=== PATIENT | female | born 1945 | race Caucasian/White ===

== ENCOUNTER → 2023-11-12 15:33 | Outpatient (REF) | payer OTHER, SELFPAY | LOC: HWWDC 15:33 | PROVIDERS: ATTENDING PHYSICIAN Family Medicine | DX: Z12.31 Encounter for screening mammogram for malignant neoplasm of breast (principal) | CPT/HCPCS: 77063; 77067 ==

== ENCOUNTER 2025-02-09 09:36 | Emergency (ER) | payer OTHER, SELFPAY ==
[2025-02-09 09:54] VITALS: BP 156/94
[2025-02-09 10:22] LABS: % Basophils 0.4 % (0-2); % Eosinophils 4.3 % (0-6); % Immature Granulocytes 0.2 % (0-0.5); % Lymphocytes 10.7 % (20.5-51.1); % Monocytes 6.8 % (1.7-9.3); % Neutrophils 77.6 % (42.2-75.2); Absolute Eosinophils 0.5 10^3/uL (0-0.7); Absolute Lymphocytes 1.1 10^3/uL (1.2-3.4); Absolute Monocytes 0.7 10^3/uL (0.1-0.6); Absolute Neutrophils 8.2 10^3/uL (1.4-6.5); Hematocrit 41.6 % (37.0-47.0); Hemoglobin 14.2 g/dL (12.0-16.0); Mean Corp Hgb Conc. 34.1 g/dL (33.0-37.0); Mean Corpuscular Hgb 32.4 pg (27.0-31.0); Mean Platelet Volume 10.5 fL (7.4-10.4); Nucleated Red Blood Cells % 0 %; Platelet Count 247 10^3/uL (130-400); Red Blood Cell Count 4.38 10^6/uL (4.20-5.40); Red Cell Dist. Width 11.9 % (11.5-14.5); White Blood Cell Count 10.5 10^3/uL (4.8-10.8)
[2025-02-09 10:35] LABS: COVID-19 Antigen Negative (Negative)
[2025-02-09 10:36] LABS: ALT (SGPT) 18 U/L (0-35); AST (SGOT) 21 U/L (14-36); Albumin 4.5 g/dl (3.5-5.0); Alkaline Phosphatase 92 U/L (38-126); Blood Urea Nitrogen 12 mg/dl (7-17); Calcium 9.7 mg/dl (8.4-10.2); Carbon Dioxide 27 mmol/L (22-30); Chloride 104 mmol/L (98-107); Glucose 129 mg/dl (70-99); Potassium 3.9 mmol/L (3.5-5.1); Sodium 142 mmol/L (135-145); Total Bilirubin 0.9 mg/dl (0.2-1.3); Total Protein 7.2 g/dl (6.3-8.2); eGFR > 60.00
[2025-02-09 10:45] LABS: Troponin I < 0.012 ng/ml
[2025-02-09] MEDS: DUONEB 3 ML INH (11:16)
--- NOTE | 2025-02-09 11:19 | ED.GENMED ---
History of Present Illness
General
Chief Complaint: Cough
Source: patient
Exam Limitations: none
Time Seen by Provider: 02/09/25 11:05
History of Present Illness
History of Present Illness:
79-year-old female presents with 3 to 4 weeks of cough. She notes continuous and postnasal drip. She has seen her family doctor for this. He prescribed an inhaler Flonase and Mucinex. She now notes that she is wheezing and she feels tight when
she is breathing. She says she has been diagnosed with COPD in the past. No fevers. No leg swelling or calf pain. No other complaints at this time
Past History
Past History
ED Past Medical History: GERD (Hiatal hernia who), HTN, Hypercholesterolemia and Other (History of hiatal hernia, irritated esophagus, frequent UTIs, loss of urination control, osteoarthritis, hearing impairment in the left, anxiety, borderline
diabetes, history of herniated disc); Negative NIDDM
ED Past Surgical History: and Other; Negative Cardiac
Social History
Tobacco: Former smoker (Quit 1998)
Alcohol: None
Personal:
Living: with family
Employment: Retired
Family History
Family History: Hypertension
Phy Exam
Physical Exam
Physical Exam:
General: Well-appearing female no acute respiratory distress
HEENT: Normocephalic atraumatic neck is supple
Heart: Regular rate and rhythm
Lungs: Clear mild wheeze inspiratory
Extremities: No cyanosis or edema
Skin: Warm no rash
Course
Orders/Labs/Results
Orders:
Orders
02/09/25 09:37
Electrocardiogram (*1) Urgent
Reason for Study: Shortness of Breath
EKG- Treatment ONCE
02/09/25 10:04
COVID-19 Antigen Urgent
Source: Nasal Swab
Complete Blood Count/With Diff Urgent
Comprehensive Metabolic Panel Urgent
Influenza A+B Rapid Molecular Urgent
CE Source: Nasal Swab
Specimen Description:
02/09/25 10:05
CXR2 [CR Chest - 2 Views ] Urgent
Comment:
Reason For Exam: cough
02/09/25 10:09
Troponin I Urgent
02/09/25 11:15
Ipratropium/Albuterol Sulfate [Duoneb] 3 ml INH R NOW STA
Abnormal Lab Results
02/09/25
10:04
MCH 32.4 H pg
(27.0-31.0)
MPV 10.5 H fL
(7.4-10.4)
Absolute Neuts (auto) 8.2 H 10^3/uL
(1.4-6.5)
Absolute Lymphs (auto) 1.1 L 10^3/uL
(1.2-3.4)
Absolute Monos (auto) 0.7 H 10^3/uL
(0.1-0.6)
Neutrophils % 77.6 H %
(42.2-75.2)
Lymphocytes % 10.7 L %
(20.5-51.1)
Glucose 129 H mg/dl
(70-99)
02/09/25 10:04
02/09/25 10:04
Vital Signs
Initial and Last Documented VS:
Initial Vital Signs
Temp Pulse Resp BP Pulse Ox
98.7 F 94 16 156/94 94
02/09/25 09:54 02/09/25 09:54 02/09/25 09:54 02/09/25 09:54 02/09/25 09:54
Last Documented Vital Signs
Temp Pulse Resp BP Pulse Ox
98.7 F 80 16 119/84 95
02/09/25 09:54 02/09/25 12:03 02/09/25 12:03 02/09/25 12:03 02/09/25 12:03
MDM/Problems Addressed
Differential Diagnosis Includes:
Cough. Wheeze on exam. Consider asthma versus COPD versus pneumonia versus viral illness COVID and flu test are negative.
Chest x-ray personally reviewed pending radiology report shows no obvious acute infiltrate or consolidation
Will try DuoNeb
*Critical Care Note
Total Time (30-74mins, 75-104mins- exclusive of procedures): Not Applicable
Update Note
Update Note:
Patient feels better after nebulizer. Suspect acute bronchitis. Will represcribe inhaler with several days of steroid. Stable for discharge
ED Attending Note
-
Portions of this chart may have been created with voice recognition software.� Occasional wrong word or��sound alike� substitutions may have occurred due to the inherent limitations of voice recognition software.
Discharge Plan
Departure
Patient Disposition: Home (Routine Discharge)
Date of Disposition: 02/09/25
Time of Disposition: 12:08
Patient with high blood pressure during this ER visit?: No
Discharge Problem:
Acute bronchitis
Instructions: Acute Bronchitis, Adult (DC)
Prescriptions:
New
prednisone 20 mg tablet
40 mg PO DAILY 5 Days Qty: 10 0RF
albuterol sulfate 90 mcg/actuation aerosol powdr breath activated
2 inh inhalation QID PRN (Reason: shortness of breath) Qty: 1 0RF
No Action
quinapril [Accupril] 40 MG tablet
20 mg PO BID
esomeprazole magnesium [Nexium] 40 MG capsule,delayed release(DR/EC)
40 mg PO DAILY
calcium carbonate [Antacid (calcium carbonate)] 1 TABLET tablet,chewable
2 tab PO DAILY
hydrochlorothiazide 25 MG tablet
25 mg PO DAILY
[id number]-lwfyspajieksr-ygsfmsrx [Excedrin Extra Strength] 1 TABLET tablet
1 tab PO 3XW
timolol maleate [Istalol] 2.5 ML drops, once daily
2.5 ml OP DAILY
bimatoprost [Lumigan] 5 ML drops
5 ml OP HS
azithromycin 250 MG tablet
250 mg PO DAILY Qty: 6 0RF
benzonatate 100 MG capsule
100 mg PO TIDPRN PRN (Reason: cough) Qty: 21 0RF
albuterol sulfate [Proventil HFA] 90 MCG/PUFF HFA aerosol inhaler
2 puff inhalation Q4HPRN PRN (Reason: shortness of breath) Qty: 1 0RF
Rx Instructions:
2 puffs every four hours as needed for wheezing/sob.
prednisone 50 MG tablet
50 mg PO DAILY Qty: 5 0RF
tramadol 50 MG tablet
50 mg PO Q8HPRN PRN (Reason: severe pain) Qty: 20 0RF
Referrals:
Carey Hernandez, DO [Family Provider] -
Activity Restrictions/Additional Instructions:
Take the steroid as directed. Use inhaler as needed. Return if worse otherwise follow-up with your doctor
Interventions
Interventions:
*Risk Screen - Suicide Last Done: 02/09/25 11:29
*Nursing Disposition Last Done: 02/09/25 12:04
ED- Pulmonary Assessment Last Done: 02/09/25 11:29
Discharge Date and Time
Print Language: BOLIVIAN
[2025-02-09 12:03] VITALS: BP 119/84
== END 2025-02-09 12:22 | disposition home or self-care (01) ==
LOC: EMR 09:36
PROVIDERS: EMERGENCY PHYSICIAN Student in an Organized Health Care Education/Training Program; FAMILY PHYSICIAN Family Medicine
DX: J20.9 Acute bronchitis, unspecified (principal); I10 Essential (primary) hypertension; E78.00 Pure hypercholesterolemia, unspecified; J44.0 Chronic obstructive pulmonary disease with (acute) lower respiratory infection; Z87.891 Personal history of nicotine dependence; Z11.52 Encounter for screening for COVID-19
CPT/HCPCS: 99285; 94640; 71046; 80053; 84484; 85025; 87502; 87811; 93005

== ENCOUNTER → 2025-07-08 13:43 | Outpatient (REF) | payer OTHER, SELFPAY | LOC: HWWDC 13:43 | PROVIDERS: ATTENDING PHYSICIAN Family Medicine | DX: Z12.31 Encounter for screening mammogram for malignant neoplasm of breast (principal) | CPT/HCPCS: 77063; 77067 ==

== ENCOUNTER → 2025-09-15 07:48 | Outpatient (REF) | payer OTHER, SELFPAY | LOC: HWRAD 07:48 | PROVIDERS: ATTENDING PHYSICIAN Family Medicine | DX: M85.80 Other specified disorders of bone density and structure, unspecified site (principal) | CPT/HCPCS: 77080 ==